=== PATIENT | female | born 1990 | race Caucasian/White ===

== ENCOUNTER 2017-03-12 17:51 | Emergency (ER) | payer OTHER ==
--- OUTSIDE RECORDS SUMMARY | 2017-03-12 18:33 | XMS REPORT | Continuity of Care Document ---
:1990 Author Organization [place] [place] [address] Care Team Providers Name Role Phone Curtis Lackey A Primary Care Provider [phone] Source Comments This disclosure is being made pursuant to the [employer] program and maynot contain all information available regarding this patient.[facility] Active Allergies and Adverse Reactions Allergen Noted Date Severity Reactions Comments Tape 01/30/2016 Low Rash Current Medications Be aware that medications may not be up to date as of this document. Alwaysverify current medications with the patient. Prescription Sig. Disp. Refills Start Date End Date Status ondansetron (ZOFRAN) 4 Take 1 tablet by 9 tablet 0 01/30/2016 Active MG tablet mouth every 8 (eight) hours as needed for Nausea. acetaminophen (TYLENOL Take 1 tablet by 12 tablet 0 05/01/2016 Active ARTHRITIS) 650 MG CR mouth every 8 tablet (eight) hours as needed for Pain. Active Problems Currently Estimated Date of Delivery Comments Yes No known active problems Social History Tobacco Use Types Packs/Day Years Used Date Current Every Day Smoker Cigarettes 0.5 8 Alcohol Use Drinks/Week oz/Week Comments No Last Filed Vital Signs Vital Sign Reading Time Taken Blood Pressure 113/66 05/01/2016 5:23 PM CDT Pulse 95 05/01/2016 5:23 PM CDT Temperature 37 C (98.6 F) 05/01/2016 5:23 PM CDT Respiratory Rate 18 05/01/2016 5:23 PM CDT Height 1.575 m (5' 2.01") 05/01/2016 5:23 PM CDT Weight 68.04 kg (150 lb) 05/01/2016 5:23 PM CDT Body Mass Index 27.43 05/01/2016 5:23 PM CDT Oxygen Saturation 99% 05/01/2016 5:23 PM CDT Plan of Care Health Maintenance Due Date Last Done Comments HPV Vaccine (9-26YO) (1 of 3 - Female 3 2003 Dose Series) Pneumococcal Medium Risk 19-64 yo (1 of 1 2011 - PPSV23) Tetanus/Pertussis (1 - Tdap) 2011 Pap Smear 2013 Influenza Immunization (#1) 2016 Chlamydia Screening 05/01/2017 05/01/2016, 01/30/2016 Results from Last 3 Months Not on file
--- OUTSIDE RECORDS SUMMARY | 2017-03-12 18:34 | XMS REPORT | Summary of Care ---
:[address] [facility] Address [address] [place] [address] Care Team Providers Name Role Phone Jeni Reveles Primary Care Physician Encounter Date(s): 10/20/16 - 10/20/16 [facility], [address] [place] [id number] [place] Discharge Disposition: 01 Discharged to Home or Self Care Attending Physician: Jeni Reveles MD Vital Signs No data available for this section Problem List Condition Effective Dates Status Health Status Informant Adolescent (Confirmed) Active Anxiety(Confirmed) Active Depression(Confirmed) Active Maternal tobacco use(Confirmed) Active (Confirmed) 01/20/16 Active (Confirmed) 01/13/12 - 10/19/12 Resolved Allergies, Adverse Reactions, Alerts Substance Reaction Severity Status Adhesive Bandage SWELLING Active Medications ALPRAZolam 0.5 mg oral tablet 1 tab(s), Oral, TID, PRN for anxiety, 0 Refill(s), Start Date: 01/05/16 12:47: 00 CDT Start Date: 01/05/16 Stop Date: 03/22/16 Status: DiscontinuedAzithromycin 5 Day Dose Pack 250 mg oral tablet 1 packet(s), Oral, Per Package Label, as directed on package labeling, # 6 tab(s ), 0 Refill(s), Start Date: 08/27/16 15:10:00 TAX ACCOUNTANT, Pharmacy: [facility] [id number] Start Date: 08/27/16 Stop Date: 09/03/16 Status: CompletedbusPIRone 10 mg oral tablet 1 tab(s), Oral, BID, # 60 tab(s), 3 Refill(s), Start Date: 08/03/16 15:22:00 CDT , Pharmacy: [facility] [id number] Start Date: 08/03/16 Status: Orderedcefdinir 300 mg oral capsule 0 Refill(s), Start Date: 08/17/16 15:06:00 TAX ACCOUNTANT Start Date: 08/17/16 Stop Date: 08/27/16 Status: CompletedclonazePAM Oral, TID, 0 Refill(s), Start Date: 05/01/15 14:53:00 CDT Start Date: 05/01/15 Stop Date: 02/10/16 Status: DiscontinuedDiclegis 2 tab(s), Oral, HS, exp 2017-08-02, 0 Refill(s), Start Date: 03/24/16 8:33:00 CDT, Samples: 2, 1397 Start Date: 03/24/16 Stop Date: 06/14/16 Status: Discontinueddocusate sodium 100 mg oral capsule 1 cap(s), Oral, BIDMEALS, # 60 cap(s), 0 Refill(s), Start Date: 10/15/16 8:23: 00 TAX ACCOUNTANT, Pharmacy: [facility] [id number] Start Date: 10/15/16 Status: OrderedFlexeril 10 mg oral tablet 1 tab(s), Oral, TID, # 30 tab(s), 0 Refill(s), Start Date: 08/11/16 14:58:00 TAX ACCOUNTANT , Pharmacy: [facility] [id number] Start Date: 08/11/16 Status: OrderedHYDROcodone-acetaminophen 5 mg-325 mg oral tablet 1 tab(s), Oral, q6hr interval, # 4 tab(s), 0 Refill(s), Start Date: 04/01/16 21: 33:00 CDT Start Date: 04/01/16 Stop Date: 04/02/16 Status: Completedhydrocodone-acetaminophen 5mg-325mg oral tablet 1 tab(s), Oral, q6hr interval, PRN pain moderate 4-7, X 5 days, # 20 tab(s), 0 Refill(s), Start Date: 10/15/16 8:23:00 TAX ACCOUNTANT, Pharmacy: [facility] [id number] Start Date: 10/15/16 Stop Date: 10/20/16 Status: Completedibuprofen 800 mg oral tablet 1 tab(s), Oral, TID, PRN cramps, # 40 tab(s), 0 Refill(s), Start Date: 10/15/16 8:23:00 TAX ACCOUNTANT, Pharmacy: [facility] [id number] Start Date: 10/15/16 Status: OrderedNifedical XL 30 mg oral tablet, extended release 1 tab(s), Oral, Daily, # 15 tab(s), 0 Refill(s), Start Date: 08/31/16 17:21:00 TAX ACCOUNTANT, Pharmacy: [id number] Start Date: 08/31/16 Stop Date: 09/21/16 Status: DiscontinuedNuvaRing 0.120 mg-0.015 mg vaginal ring EA, Vaginal, q4wk, 2 SAMPLES GIVEN PER LISSETH MANNING, 0 Refill(s), Start Date: 05/01/15 15:16:00 CDT, [id number], 07/03/16 Start Date: 05/01/15 Stop Date: 06/02/15 Status: Discontinuedpenicillin V potassium 500 mg oral tablet 1 tab(s), Oral, BID, # 20 tab(s), 0 Refill(s), Start Date: 12/18/15 13:51:00 CDT , Pharmacy: [facility] [id number] Start Date: 12/18/15 Stop Date: 02/05/16 Status: CompletedPrenatal Multivitamins 1 tablet, Oral, Daily, 0 Refill(s), Start Date: 03/22/16 13:13:00 CDT Start Date: 03/22/16 Status: OrderedProventil HFA 90 mcg/inh inhalation aerosol 1 puff(s), Inhale, QID, PRN for wheezing, # 1 boxes, 0 Refill(s), Start Date: 15:10:00 TAX ACCOUNTANT, Pharmacy: [facility] [id number] Start Date: 08/27/16 Status: Orderedtriamcinolone 0.1% topical cream 1 clary, Topical, TID, PRN soreness, 0 Refill(s), Start Date: 10/15/16 8:23:00 TAX ACCOUNTANT Start Date: 10/15/16 Status: OrderedTylenol 325 mg oral capsule 650 mg, Oral, q4hr, PRN pain mild 1-3, 0 Refill(s), Start Date: 10/15/16 8:23: 00 TAX ACCOUNTANT Start Date: 10/15/16 Status: OrderedVitamin D with Minerals oral tablet tab(s), Oral, Daily, 0 Refill(s), Start Date: 06/02/15 15:02:00 CDT Start Date: 06/02/15 Stop Date: 02/10/16 Status: CompletedWellbutrin XL 300 mg/24 hours oral tablet, extended release tab(s), Oral, q24hr interval, 0 Refill(s), Start Date: 05/01/15 14:52:00 CDT Start Date: 05/01/15 Stop Date: 02/10/16 Status: Discontinued Results No data available for this section Immunizations Given and Recorded Vaccine Date Status Refusal Reason tetanus/diphth/pertuss (Tdap) adult/adol 08/03/16 Given influenza virus vaccine, inactivated 08/03/16 Given Procedures Procedure Date Related Diagnosis Body Site Cholecystectomy 2013 Removal - procedure1 2011 Extraction of wisdom tooth 2010 Cystectomy2 2009 1STONE TAKEN OUT OF SALIVA [id number] Social History No data available for this section Assessment and Plan No data available for this section
--- OUTSIDE RECORDS SUMMARY | 2017-03-12 18:34 | XMS REPORT | Summary of Care ---
:1990 Author Organization [facility] Address [address] [place] [address] Care Team Providers Name Role Phone Jeni Reveles Primary Care Physician Encounter Date(s): 11/25/16 - 11/25/16 [facility], [address] [place] [address]- [facility] Discharge Diagnosis: Sore throat Discharge Diagnosis: Encounter for insertion of intrauterine contraceptive device Discharge Diagnosis: Encounter for routine follow-up Discharge Disposition: Discharged to Home or Self Care Attending Physician: Jeni Reveles MD Referring Physician: Jeni Reveles MD Vital Signs Most recent to oldest [Reference Range]: 1 Peripheral Pulse Rate [60-100 bpm] 70 bpm (11/25/16 10:58 AM) Blood Pressure [90-130/60-90 mmHg] 109/63mmHg (11/25/16 10:58 AM) Mean Arterial Pressure, Cuff 78 mmHg (11/25/16 10:58 AM) Most recent to oldest [Reference Range]: 1 Weight Dosing 70.90 kg1 (11/25/16 11:01 AM) Weight Measured 70.9 kg (11/25/16 10:58 AM) 1Result Comment: This result was because the dosing weight was either not entered or it is>30 days old. This result is based off: Weight Measured November 25, 2016 10:58:00 MACHINE MARKER by Andra Cerna CMA Problem List Condition Effective Dates Status Health Status Informant Adolescent (Confirmed) Active Anxiety(Confirmed) Active Depression(Confirmed) Active Maternal tobacco use(Confirmed) Active (Confirmed) 01/20/16 - 10/13/16 Resolved (Confirmed) 01/13/12 - 10/19/12 Resolved Allergies, Adverse [...] ), 0 Refill(s), Start Date: 08/27/16 15:10:00 MACHINE MARKER, Pharmacy: [facility] Special Instructions: as directed on package labeling Start Date: 08/27/16 Stop Date: 09/03/16 Status: CompletedbusPIRone 10 mg oral tablet 1 tab(s), Oral, BID, # 60 tab(s), 3 Refill(s), Start Date: 08/03/16 15:22:00 CDT , Pharmacy: [facility] [id number] Start Date: 08/03/16 Status: Orderedcefdinir 300 mg oral capsule 0 Refill(s), Start Date: 08/17/16 15:06:00 MACHINE MARKER Start Date: 08/17/16 Stop Date: 08/27/16 Status: CompletedclonazePAM Oral, TID, 0 Refill(s), Start Date: 05/01/15 14:53:00 CDT Special Instructions: PT is not taking Start Date: 05/01/15 Stop Date: 02/10/16 Status: DiscontinuedDiclegis 2 tab(s), Oral, HS, exp 2017-08-02, 0 Refill(s), Start Date: 03/24/16 8:33:00 CDT, Samples: 2, 1397 Special Instructions: exp 2017-08-02 Start Date: 03/24/16 Stop Date: 06/14/16 Status: Discontinueddocusate sodium 100 mg oral capsule 1 cap(s), Oral, BIDMEALS, # 60 cap(s), 0 Refill(s), Start Date: 10/15/16 8:23: 00 MACHINE MARKER, Pharmacy: [facility] [id number] Start Date: 10/15/16 Stop Date: 11/25/16 Status: DiscontinuedFenugreek Fenugreek, 0 Refill(s), Supply Start Date: 11/25/16 Status: OrderedFlexeril 10 mg oral tablet 1 tab(s), Oral, TID, # 30 tab(s), 0 Refill(s), Start Date: 08/11/16 14:58:00 MACHINE MARKER , Pharmacy: [facility] [id number] Start Date: 08/11/16 Stop Date: 11/25/16 Status: DiscontinuedHYDROcodone-acetaminophen 5 mg-325 mg oral tablet 1 tab(s), Oral, q6hr interval, # 4 tab(s), 0 Refill(s), Start Date: 04/01/16 21: 33:00 CDT Start Date: 04/01/16 Stop Date: 04/02/16 Status: Completedhydrocodone-acetaminophen 5mg-325mg oral tablet 1 tab(s), Oral, q6hr interval, PRN pain moderate 4-7, X 5 days, # 20 tab(s), 0 Refill(s), Start Date: 10/15/16 8:23:00 MACHINE MARKER, Pharmacy: [facility] [id number] Start Date: 10/15/16 Stop Date: 10/20/16 Status: Completedibuprofen 800 mg oral tablet 1 tab(s), Oral, TID, PRN cramps, # 40 tab(s), 0 Refill(s), Start Date: 10/15/16 8:23:00 MACHINE MARKER, Pharmacy: [facility] [id number] Start Date: 10/15/16 Stop Date: 11/25/16 Status: Discontinuedlevonorgestrel (Mirena) intrauteral device (office) 52 mg, Intrauteral, ONETIME, First Dose: 11/25/16 12:00:00 MACHINE MARKER, Stop Date: 11/25 12:00:00 MACHINE MARKER, Diagnosis: Encounter for insertion of intrauterine contraceptive device Start Date: 11/25/16 Stop Date: 11/25/16 Status: CompletedMirena 52 mg intrauterine device 1 EA, Intrauteral, ONETIME, # 1 EA, 0 Refill(s), Start Date: 11/25/16 11:50:00 MACHINE MARKER, [id number], 07/02/19 Start Date: 11/25/16 Stop Date: 11/25/21 Status: OrderedNifedical XL 30 mg oral tablet, extended release 1 tab(s), Oral, Daily, # 15 tab(s), 0 Refill(s), Start Date: 08/31/16 17:21:00 MACHINE MARKER, Pharmacy: [id number] Start Date: 08/31/16 Stop Date: 09/21/16 Status: DiscontinuedNuvaRing 0.120 mg-0.015 mg vaginal ring EA, Vaginal, q4wk, 2 SAMPLES GIVEN PER LISSETH MANNING, 0 Refill(s), Start Date: 05/01/15 15:16:00 CDT, [id number], 07/03/16 Special Instructions: 2 SAMPLES GIVEN PER LISSETH MANNING Start Date: 05/01/15 Stop Date: 06/02/15 Status: Discontinuedpenicillin V potassium 500 mg oral tablet 1 tab(s), Oral, BID, # 20 tab(s), 0 Refill(s), Start Date: 12/18/15 13:51:00 CDT , Pharmacy: [facility] [id number] Start Date: 12/18/15 Stop Date: 02/05/16 Status: CompletedPrenatal Multivitamins 1 tablet, Oral, Daily, 0 Refill(s), Start Date: 03/22/16 13:13:00 CDT Start Date: 03/22/16 Status: OrderedProventil HFA 90 mcg/inh inhalation aerosol 1 puff(s), Inhale, QID, PRN for wheezing, # 1 boxes, 0 Refill(s), Start Date: 15:10:00 MACHINE MARKER, Pharmacy: [facility] [id number] Start Date: 08/27/16 Status: Orderedtriamcinolone 0.1% topical cream 1 clary, Topical, TID, PRN soreness, 0 Refill(s), Start Date: 10/15/16 8:23:00 MACHINE MARKER Start Date: 10/15/16 Stop Date: 11/25/16 Status: DiscontinuedTylenol 325 mg oral capsule 650 mg, Oral, q4hr, PRN pain mild 1-3, 0 Refill(s), Start Date: 10/15/16 8:23: 00 MACHINE MARKER Start Date: 10/15/16 Stop Date: 11/25/16 Status: DiscontinuedVitamin D with Minerals oral tablet tab(s), Oral, Daily, 0 Refill(s), Start Date: 06/02/15 15:02:00 CDT Start Date: 06/02/15 Stop Date: 02/10/16 Status: CompletedWellbutrin XL 300 mg/24 hours oral tablet, extended release tab(s), Oral, q24hr interval, 0 Refill(s), Start Date: 05/01/15 14:52:00 CDT Special Instructions: PT not taking Start Date: 05/01/15 Stop Date: 02/10/16 Status: Discontinued Results No data available for this section Immunizations Vaccine Date Refusal Reason tetanus/diphth/pertuss (Tdap) adult/adol 08/03/16 influenza virus vaccine, inactivated 08/03/16 Procedures Procedure Date Related Diagnosis Body Site Cholecystectomy 2013 Removal - procedure1 2011 Extraction of wisdom tooth 2010 Cystectomy2 2009 1STONE TAKEN OUT OF SALIVA [id number] Social History No data available for this section Assessment and Plan No data available for this section
--- OUTSIDE RECORDS SUMMARY | 2017-03-12 18:34 | XMS REPORT | Summary of Care ---
:1990 Author Organization [facility] Address [address] [place] [id number]- Care Team Providers Name Role Phone Jeni Reveles Primary Care Physician Encounter Date(s): 10/13/16 - 10/15/[address] [address]- [facility] Discharge Diagnosis: Encounter for full-term uncomplicated delivery Discharge Disposition: 01 Discharged to Home or Self Care Attending Physician: Jeni Reveles MD Admitting Physician: Morelia Patel MD Vital Signs Most recent to oldest 1 2 3 [Reference Range]: Temperature Temporal Artery 36.9 DegC 36.6 DegC 36.3 DegC [36-38 DegC] (10/15/16 8:00 AM) (10/15/16 12:30 AM) (10/14/16 9:15 PM) Apical Heart Rate [60-100 99 bpm bpm] (10/14/16 12:00 PM) Peripheral Pulse Rate [60-100 112 bpm 107 bpm bpm] *HI* *HI* (10/14/16 8:00 AM) (10/13/16 8:30 PM) Heart Rate Monitored [60-100 85 bpm 68 bpm 90 bpm bpm] (10/15/16 8:00 AM) (10/15/16 12:30 AM) (10/14/16 9:15 PM) Respiratory Rate [12-20 16 br/min 16 br/min 16 br/min br/min] (10/15/16 8:00 AM) (10/15/16 12:30 AM) (10/14/16 9:15 PM) SpO2 98 % 98 % 100 % (10/15/16 12:30 AM) (10/14/16 9:15 PM) (10/14/16 8:00 AM) SpO2 Location Left hand (10/14/16 8:00 AM) Blood Pressure [90-130/60-90 121/72mmHg 98/54mmHg 116/69mmHg mmHg] (10/15/16 8:00 AM) (10/15/16 12:30 AM) (10/14/16 9:15 PM) Mean Arterial Pressure, Cuff 88 mmHg 69 mmHg 85 mmHg (10/15/16 8:00 AM) (10/15/16 12:30 AM) (10/14/16 9:15 PM) Blood Pressure Location Left arm (10/14/16 8:00 AM) Height/Length Measured 158 cm (10/13/16 8:30 PM) Weight Dosing 77.6 kg (10/13/16 8:30 PM) Weight Measured 77.6 kg (10/13/16 8:30 PM) Body Mass Index Measured 31.08 kg/m2 (10/13/16 8:30 PM) Problem List Condition Effective Dates Status Health [...] ), 0 Refill(s), Start Date: 08/27/16 15:10:00 TITLE EXAMINER, Pharmacy: [facility] [id number] Start Date: 08/27/16 Stop Date: 09/03/16 Status: CompletedbusPIRone 10 mg oral tablet 1 tab(s), Oral, BID, # 60 tab(s), 3 Refill(s), Start Date: 08/03/16 15:22:00 CDT , Pharmacy: [facility] [id number] Start Date: 08/03/16 Status: Orderedcefdinir 300 mg oral capsule 0 Refill(s), Start Date: 08/17/16 15:06:00 TITLE EXAMINER Start Date: 08/17/16 Stop Date: 08/27/16 Status: [...] 0 Refill(s), Start Date: 10/15/16 8:23: 00 TITLE EXAMINER, Pharmacy: [facility] [id number] Start Date: 10/15/16 Status: OrderedFlexeril 10 mg oral tablet 1 tab(s), Oral, TID, # 30 tab(s), 0 Refill(s), Start Date: 08/11/16 14:58:00 TITLE EXAMINER , Pharmacy: [facility] [id number] Start Date: 08/11/16 Status: OrderedHYDROcodone-acetaminophen 5 mg-325 mg oral tablet 1 tab(s), Oral, q6hr interval, # 4 tab(s), 0 Refill(s), Start Date: 04/01/16 21: 33:00 CDT Start Date: 04/01/16 Stop Date: 04/02/16 Status: Completedhydrocodone-acetaminophen 5mg-325mg oral tablet 1 tab(s), Oral, q6hr interval, PRN pain moderate 4-7, X 5 days, # 20 tab(s), 0 Refill(s), Start Date: 10/15/16 8:23:00 TITLE EXAMINER, Pharmacy: [facility] [id number] Start Date: 10/15/16 Stop Date: 10/20/16 Status: Orderedibuprofen 800 mg oral tablet 1 tab(s), Oral, TID, PRN cramps, # 40 tab(s), 0 Refill(s), Start Date: 10/15/16 8:23:00 TITLE EXAMINER, Pharmacy: [facility] [id number] Start Date: 10/15/16 Status: OrderedNifedical XL 30 mg oral tablet, extended release 1 tab(s), Oral, Daily, # 15 tab(s), 0 Refill(s), Start Date: 08/31/16 17:21:00 TITLE EXAMINER, Pharmacy: [facility] Start Date: 08/31/16 Stop Date: 09/21/16 Status: DiscontinuedNuvaRing 0.120 mg-0.015 mg vaginal ring EA, Vaginal, q4wk, 2 SAMPLES GIVEN PER LISSETH MANNING, 0 Refill(s), Start Date: 05/01/15 15:16:00 CDT, [id number], 07/03/16 Start Date: 05/01/15 Stop Date: 06/02/15 Status: Discontinuedpenicillin V potassium 500 mg oral tablet 1 tab(s), Oral, BID, # 20 tab(s), 0 Refill(s), Start Date: 12/18/15 13:51:00 CDT , Pharmacy: [facility] [id number] Start Date: 12/18/15 Stop Date: 02/05/16 Status: CompletedPrenatal Multivitamins 1 tablet, Oral, Daily, 0 Refill(s), Start Date: 03/22/16 13:13:00 CDT Start Date: 03/22/16 Status: OrderedProventil HFA 90 mcg/inh inhalation aerosol 1 puff(s), Inhale, QID, PRN for wheezing, # 1 boxes, 0 Refill(s), Start Date: 15:10:00 TITLE EXAMINER, Pharmacy: [facility] [id number] Start Date: 08/27/16 Status: Orderedtriamcinolone 0.1% topical cream 1 clary, Topical, TID, PRN soreness, 0 Refill(s), Start Date: 10/15/16 8:23:00 TITLE EXAMINER Start Date: 10/15/16 Status: OrderedTylenol 325 mg oral capsule 650 mg, Oral, q4hr, PRN pain mild 1-3, 0 Refill(s), Start Date: 10/15/16 8:23: 00 TITLE EXAMINER Start Date: 10/15/16 Status: OrderedVitamin D with Minerals oral tablet tab(s), Oral, Daily, 0 Refill(s), Start Date: 06/02/15 15:02:00 CDT Start Date: 06/02/15 Stop Date: 02/10/16 Status: CompletedWellbutrin XL 300 mg/24 hours oral tablet, extended release tab(s), Oral, q24hr interval, 0 Refill(s), Start Date: 05/01/15 14:52:00 CDT Start Date: 05/01/15 Stop Date: 02/10/16 Status: Discontinued Results Patient Viewable Results Most recent to oldest [Reference Range]: 1 WBC [4.8-10.8 thou/mm3] 18.6 thou/mm3 *HI* (10/13/16 9:30 PM) RBC [4.20-5.40 Mil/mm3] 4.11 Mil/mm3 *LOW* (10/13/16 9:30 PM) Hgb [12.0-16.0 g/dL] 12.2 g/dL (10/13/16 9:30 PM) Hct [37.0-47.0 %] 36.3 % *LOW* (10/13/16 9:30 PM) MCV [80.0-94.0 fL] 88.3 fL (10/13/16 9:30 PM) MCH [25.0-38.0 pg/cell] 29.7 pg/cell (10/13/16 9:30 PM) MCHC [31.0-37.0 g/dL] 33.6 g/dL (10/13/16 9:30 PM) RDW [1.0-48.0 fL] 41.5 fL (10/13/16 9:30 PM) Platelet [130-400 thou/mm3] 220 thou/mm3 (10/13/16 9:30 PM) Neutrophils % Auto [50.0-75.0 %] 74.5 % (10/13/16 9:30 PM) Immature Granulocyte Auto [0.1-2.0 %] 0.6 % (10/13/16 9:30 PM) Lymphocytes % Auto [15.0-41.0 %] 15.6 % (10/13/16 9:30 PM) Monocytes % Auto [2.0-10.0 %] 8.7 % (10/13/16 9:30 PM) Eosinophils % Auto [0.0-6.0 %] 0.5 % (10/13/16 9:30 PM) Basophil % Auto [0.0-1.0 %] 0.1 % (10/13/16 9:30 PM) Neutrophils Absolute [1.5-5.9 thou/mm3] 13.9 thou/mm3 *HI* (10/13/16 9:30 PM) Immature Gran Absolute [0.01-0.03 thou/mm3] 0.11 thou/mm3 *HI* (10/13/16 9:30 PM) Lymphocytes Absolute [1.5-4.0 thou/mm3] 2.9 thou/mm3 (10/13/16 9:30 PM) Monocytes Absolute [0.0-0.9 thou/mm3] 1.6 thou/mm3 *HI* (10/13/16 9:30 PM) Eosinophil Absolute [0.0-0.7 thou/mm3] 0.1 thou/mm3 (10/13/16 9:30 PM) Basophil Absolute [0.0-0.2 thou/mm3] 0.0 thou/mm3 (10/13/16 9:30 PM) Rupture of Membranes [Negative] Positive1 *ABN* (10/13/16 8:28 PM) Estimated Creatinine Clearance 191.05 mL/min (10/14/16 12:59 AM) ABO/Rh O POS *Unknown* (10/13/16 9:30 PM) Antibody Screen Negative ABSC (10/13/16 9:30 PM) 1Result Comment: Verified Results called to and read back by reanna peters at 2016 8:41:52 PM TITLE EXAMINER by kory. Immunizations Given and Recorded Vaccine Date Status Refusal Reason tetanus/diphth/pertuss (Tdap) adult/adol 08/03/16 Given influenza virus vaccine, inactivated 08/03/16 Given Procedures Procedure Date Related Diagnosis Body Site Cholecystectomy 2012 Removal - procedure1 2011 Extraction of wisdom tooth 2010 Cystectomy2 2009 1STONE TAKEN OUT OF SALIVA [id number] Social History No data available for this section Assessment and Plan No data available for this section
--- NOTE | 2017-03-12 18:41 | ERNOTE ---
Upper Extremity HPI - Narrative Date of Service: 03/12/17 - General Extremities Pain Location: shoulder: right Time Seen by Provider: 03/12/17 18:20 Source: patient Exam Limitations: no limitations - Immun/Allergies/Home Medications Immunizations: IMMUNIZATION HX Immunizations Up to Date Yes History of Influenza Vaccine Yes Allergies/Adverse Reactions: Allergies Allergy/AdvReac Type Severity Reaction Status Date / Time adhesive tape Allergy Verified 03/12/17 18:03 Home Medications: HOME MEDICATIONS Vit#96/Ferrous Fum/FA [ S] 1 tab PO DAILY 08/30/16 [Last Taken Unknown] Cyclobenzaprine HCl [Flexeril] 10 mg PO TID PRN #15 tab 03/12/17 [Last Taken Unknown] - History of Present Illness Narrative: Patient presents to the ED for right shoulder pain. She was at work using a gait belt and the person fell forward. She had immediate pain right shoulder. Hurts to move the shoulder. Numbness around the shoulder but no distal N/T/W. Right handed. Mild low back pain with this also but no midline pain, no fall or direct blow. No CP or SOB> no fevers. Pain can be severe with movement. Most of the pain in the posterior shoulder. Occurred: other - today Location of Incident: work Severity: severe Method of Injury: Reports: twisted Loss of Consciousness: Reports: no loss of consciousness Modifying Factors - (Improves): Reports: rest Modifying Factors - (Worsens): Reports: movement Associated Symptoms: Denies: weakness, loss of power (rt arm) Prior Treament: Denies: recently seen Review of Systems - Review of Systems Constitutional: Absent: fever Respiratory: Absent: shortness of breath Cardiology: Absent: chest pain Gastrointestinal/Abdominal: Absent: abdominal pain Musculoskeletal: Present: See HPI Skin: Present: other - no laceration Neurological: Present: See HPI - Patient's Past Medical History Patient History - Medical: No pertinent hx, Depression Patient History - Cardiac/Respiratory: No pertinent hx Patient History - Cancer: No Hx of Cancer Patient History - Surgical Procedures: Cholecystectomy Patient History - Other: None LMP (Calendar): 01/20/16 - Social History Living Situations: home Psych History: Hx of Anxiety, Hx of Depression Smoking Status: Current every day smoker Patient requests Smoking Cessation Consult: No Initiate information on Smoking Cessation: No Alcohol Use: none Drug Use: none - Immunizations Immunizations Up to Date: Yes History of Influenza Vaccine: Yes Physical Exam - Physical Exam General Appearance: Present: alert, no apparent distress Eye Exam: Normal inspection: bilateral Neck: Present: other - no vertebral tenderness Respiratory: Present: no respiratory distress Cardiovascular/Chest: Present: regular rate, rhythm, normal peripheral pulses Back Exam: Present: other - Mild muscular tendenress right and left low back. No vertebral tendenress. No suggestion of need for x-rays.. Absent: vertebral tenderness Extremity Exam: Present: normal inspection, other - Tenderness right scapula and deltoid. Full ROM. No clinical dislocation. Strong radial pulse. No swelling Neurological Exam: Present: other - Sensation to LT intact. Full hnd strength. No motor deficits although pain does limit exam somewhat. No clear acute focla motor or sensory deficits. Skin Exam: Absent: skin rash ED Progress - Vital Signs Patient's Vital Signs:: I have reviewed the patient's vital signs. Vital Signs: Vital Signs 03/12/17 17:58 Temperature 36.8 C Pulse Rate 88 Respiratory 18 Rate Blood Pressure 129/78 O2 Sat by Pulse 97 Oximetry - X-Ray X-Ray #1 X-Ray: shoulder Interpretation: Interp. by me X-ray Comments: No real-time x-ray reads available as is weekend. No fracture or acute process by my interpretation. - Progress/Reassessment Chief Complaint: Shoulder Injury/Pain Progress Note-Subjective: 03/12/17 18:37 No suggestion of septic arthritis, vascular or neuro deficit. Cannot r/o internal derangement. Conservative management with close f/u. I discussed warning signs and reasons to return as well as the need for close f/u. 03/12/17 18:40 No compartment syndrome. Departure Clinical Impression: Musculoskeletal pain of right upper extremity - Departure Disposition: Home self-care Condition: Stable Instructions: Shoulder Pain, [id number] Additional Instructions: Rest. Ice. Medications as directed, no driving while taking. No work until re -checked. Follow-up with your doctor 3 days for a re-check. Return for increased pain, numbness, tingling, weakness or if your condition worsens or changes in any way. SLing as needed for no longer than 3 days. No with muscle relaxants. Ibuprofen. Referrals: Curtis Lackey DO [Primary Care Provider] - Prescriptions: Cyclobenzaprine HCl [Flexeril] 10 mg PO TID PRN #15 tab PRN Reason: MUSCLE SPASMS
[2017-03-12 19:27] VITALS: BP 108/71
== END 2017-03-12 19:05 | disposition home or self-care (01) ==
LOC: ER 17:51
DX: M79.621 Pain in right upper arm (principal); X58.XXXA Exposure to other specified factors, initial encounter; Y93.89 Activity, other specified; Y92.9 Unspecified place or not applicable; Y99.0 Civilian activity done for income or pay

== ENCOUNTER 2017-06-07 20:47 | Emergency (ER) | payer SELFPAY ==
[2017-06-07 21:10] LABS: Hematocrit 42.3 % (37.0-47.0); Mean Cell Volume 88.1 fl (78-100); Mean Corpuscular Hemoglobin 29.2 pg (27-31); Mean Corpuscular Hgb Conc 33.1 g/dl (32-36); Mean Platelet Volume 11.7 fl (6.0-9.5); Neutrophil # 5.3 K/mm3 (1.3-6.0); Neutrophil % 51.6 % (42-75.0); Platelet Count 270 K/mm3 (150-450); Red Cell Distribution Width 12.3 % (11.5-14.0); White Blood Count 10.3 K/mm3 (4.0-10.5)
[2017-06-07 21:11] LABS: Urine Bilirubin Negative (NEGATIVE); Urine Blood Negative /ul (NEGATIVE); Urine Ketone Negative (NEGATIVE); Urine Nitrite Negative (NEGATIVE); Urine Protein Negative (NEGATIVE); Urine Urobilinogen Normal (NORMAL); Urine pH 6.5 pH (5.0-7.0)
[2017-06-07] MEDS ORDERED: NORMAL SALINE 1,000 ML IV ONE (21:19)
[2017-06-07 21:21] LABS: Urine Appearance Cloudy; Urine Bacteria 1+; Urine Color Yellow; Urine RBC None Seen /hpf (0-5); Urine WBC 0-5 /hpf (0-5)
[2017-06-07] MEDS ORDERED: ONDANSETRON HCL/PF 2 MG/ML VIAL IV ONE (21:22)
--- NOTE | 2017-06-07 21:23 | ERNOTE ---
Abdominal HPI - General Chief Complaint: Abdominal Pain Time Seen by Provider: 06/07/17 21:11 Source: patient Exam Limitations: no limitations - Immun/Allergies/Home Medications Immunizatons: IMMUNIZATION HX Immunizations Up to Date Yes History of Influenza Vaccine Yes Allergies/Adverse Reactions: Allergies adhesive tape Allergy (Verified 06/07/17 20:57) Home Medications: HOME MEDICATIONS NK [No Home Medication] 06/07/17 [Last Taken Unknown] - History of Present Illness Narrative: Onset of central abdominal pain yesterday with "shooting pain" intermittently down toward the RLQ. Now stabbing from her back and shooting to the RLQ. Timing: getting worse Quality: moderate, severe Activities at Onset: none Associated Symptoms: Present: nausea, loss of appetite Prior Abdominal Problems: Present: none Review of Systems - Review of Systems Constitutional: Present: chills, diaphoresis, fatigue EYE: Present: no symptoms reported ENT: Present: no symptoms reported Respiratory: Present: no symptoms reported Cardiology: Present: no symptoms reported Gastrointestinal/Abdominal: Present: See HPI, diarrhea - yesterday once, normal BM today. Absent: vomiting Genitourinary: Present: frequency. Absent: dysuria Musculoskeletal: Present: back pain Skin: Present: no symptoms reported Neurological: Present: no symptoms reported Endocrine: Present: no symptoms reported Hematologic/Lymphatic: Present: no symptoms reported - Patient's Past Medical History Patient History - Medical: Anxiety, Depression Patient History - Cardiac/Respiratory: No pertinent hx Patient History - Cancer: No Hx of Cancer Patient History - Surgical Procedures: Cholecystectomy, Other Patient History - Other: None LMP (females 10-50): 1 month LMP (Calendar): 01/20/16 - Social History Living Situations: spouse Abuse History: No History of abuse Psych History: Hx of Anxiety, Hx of Depression Smoking Status: Current every day smoker Have you smoked in the past 12 months: Yes Do you dip or chew tobacco: No Patient requests Smoking Cessation Consult: No Initiate information on Smoking Cessation: No Alcohol Use: rarely Drug Use: none - Immunizations Immunizations Up to Date: Yes History of Influenza Vaccine: Yes Physical Exam - Physical Exam General Appearance: Present: wd/wn, alert, mild distress Head Exam: Present: normal inspection, no evidence of injury Eye Exam: Normal inspection: bilateral Neck: Present: normal inspection, nontender Respiratory: Present: no respiratory distress, normal breath sounds Cardiovascular/Chest: Present: regular rate, rhythm, no murmur Gastrointestinal/Abdominal: Present: tenderness - RLQ, rebound - questionable. Absent: distended, guarding Back Exam: Present: normal inspection, normal range of motion, no CVA tenderness , no vertebral tenderness Extremity Exam: Present: normal inspection, normal range of motion, no edema Neurological Exam: Present: alert, oriented, no motor/sensory deficits Skin Exam: Present: normal color, warm/dry Lymphatic Exam: Present: no adenopathy ED Progress - Results and Orders Patient's Lab Results:: I have reviewed the patient's lab results. Results and Orders: Laboratory Tests 06/07/17 06/07/17 06/07/17 21:00 21:05 21:10 WBC 10.3 Hgb 14.0 Hct 42.3 Plt Count 270 ESR 3 Sodium Potassium Chloride BUN Creatinine Random Glucose Calcium Total Bilirubin AST ALT Alkaline Phosphatase C-Reactive Prot, Quant Total Protein Albumin Amylase Lipase Urine Color Urine Appearance Urine pH Ur Specific [place] Urine Protein Urine Glucose (UA) Urine Ketones Urine Blood Urine Nitrate Urine Bilirubin Urine Urobilinogen Ur Leukocyte Esterase Urine RBC Urine WBC Ur Epithelial Cells Urine Bacteria Urine Culture Comments Urine HCG, Qual Negative 06/07/17 06/07/17 06/07/17 21:10 21:17 21:17 WBC Hgb Hct Plt Count ESR Sodium 140 Potassium 4.1 D Chloride 104 BUN 12 D Creatinine 0.75 Random Glucose 115 H Calcium 8.3 Total Bilirubin 0.1 AST 12 ALT 16 L Alkaline Phosphatase 92 C-Reactive Prot, Quant Less than 0.2 Total Protein 7.2 Albumin 4.0 Amylase 45 Lipase 132 Urine Color Yellow Urine Appearance Cloudy Urine pH 6.5 Ur Specific [place] 1.020 Urine Protein Negative Urine Glucose (UA) Negative Urine Ketones Negative Urine Blood Negative Urine Nitrate Negative Urine Bilirubin Negative Urine Urobilinogen Normal Ur Leukocyte Esterase Negative Urine RBC None seen Urine WBC 0-5 Ur Epithelial Cells 10-25 H Urine Bacteria 1+ H Urine Culture Comments No culture indicated Urine HCG, Qual - Vital Signs Patient's Vital Signs:: I have reviewed the patient's vital signs. Vital Signs: Vital Signs 06/07/17 20:51 Temperature 36.5 C Pulse Rate 74 Respiratory 14 Rate Blood Pressure 119/76 O2 Sat by Pulse 99 Oximetry - X-Ray X-Ray #1 X-Ray: abdomen Interpretation: Interp. by me X-ray Comments: moderate to severe stool retention especially ascending colon. No a/f levels or other evidence for obstruction. - Progress/Reassessment Chief Complaint: Abdominal Pain Progress:: Improved Progress Note-Subjective: 06/07/17 23:30 pt feeling somewhat better. Discussed normal lab values and x-ray that shows constipation in the area of concern. Discussed using MOM tonight and tomorrow if necessary. Pt expressed understanding Departure - Departure Clinical Impression: Constipation Qualifiers: Constipation type: slow transit constipation Qualified Code(s): K59.01 - Slow transit constipation Disposition: Home self-care Condition: Good Instructions: Constipation, Adult, [id number] Additional Instructions: Take entire dose of milk of magnesia upon arriving home with a large glass of water. You may repeat that tomorrow if you have no results by mid-day. follow up with your regular doctor if not improving Referrals: Curtis Lackey, [Primary Care Provider] -
[2017-06-07 21:24] LABS: Anion Gap 16.7 mmol/L (6.8-13.8); Bilirubin, Total 0.1 mg/dL (0.0-1.1); Calcium * 8.3 mg/dL (7.9-10.9); Carbon Dioxide 23.4 mmol/L (24-32.6); Potassium 4.1 mmol/L (3.4-4.6); Total Protein 7.2 gm/dL (6.2-8.2)
[2017-06-07] MEDS ORDERED: ONDANSETRON HCL/PF 2 MG/ML VIAL ONE (21:48)
[2017-06-07 23:34] VITALS: BP 108/64
[2017-06-07] MEDS ORDERED: MAGNESIUM HYDROXIDE 30 ML UDC PO ONE (23:40)
[2017-06-07] MEDS ORDERED: MAGNESIUM HYDROXIDE 30 ML UDC ONE (23:42)
== END 2017-06-07 23:50 | disposition home or self-care (01) ==
LOC: ER 20:47
DX: K59.01 Slow transit constipation (principal); F17.200 Nicotine dependence, unspecified, uncomplicated
CPT/HCPCS: 36415; 74020; 80053; 81001; 82150; 83690; 84703; 85025; 85652; 86140; 96374; 99284; J2405

== ENCOUNTER 2017-08-09 00:17 | Emergency (ER) | payer SELFPAY ==
--- NOTE | 2017-08-09 00:52 | ERNOTE ---
Abdominal HPI - General Chief Complaint: Genitourinary Problem Time Seen by Provider: 08/09/17 00:36 Source: patient Exam Limitations: no limitations - Immun/Allergies/Home Medications Immunizatons: IMMUNIZATION HX Immunizations Up to Date Yes History of Influenza Vaccine No Allergies/Adverse Reactions: Allergies adhesive tape Allergy (Verified 08/09/17 00:27) Home Medications: HOME MEDICATIONS NK [No Home Medication] 06/07/17 [Last Taken Unknown] - History of Present Illness Narrative: Pt began having pelvic pain and vaginal bleeding 2 days ago. It has continued to worsen and OTC analgesics have only helped somewhat. She has been soaking a pad every 2 hours. Timing: getting worse Quality: moderate, severe, dullness Modifying Factors - (Improves): Present: analgesics, rest Modifying Factors - (Worsens): Present: movement Review of Systems - Review of Systems Constitutional: Absent: recent illness, fever, chills EYE: Present: no symptoms reported ENT: Present: no symptoms reported Respiratory: Present: no symptoms reported Cardiology: Present: no symptoms reported Gastrointestinal/Abdominal: Present: eating less Genitourinary: Present: See HPI, frequency, dysuria Musculoskeletal: Present: no symptoms reported Skin: Present: no symptoms reported Neurological: Present: no symptoms reported Endocrine: Present: no symptoms reported Hematologic/Lymphatic: Present: no symptoms reported Psych: Present: no symptoms reported - Patient's Past Medical History Patient History - Medical: Anxiety, Depression Patient History - Cardiac/Respiratory: No pertinent hx Patient History - Cancer: No Hx of Cancer Patient History - Surgical Procedures: Cholecystectomy, Other Patient History - Other: None LMP (females 10-50): last week - Social History Living Situations: home Abuse History: No History of abuse Psych History: Hx of Anxiety, Hx of Depression Smoking Status: Current every day smoker Alcohol Use: rarely Drug Use: none - Immunizations Immunizations Up to Date: Yes History of Influenza Vaccine: No Physical Exam - Physical Exam General Appearance: Present: wd/wn, alert, mild distress Head Exam: Present: normal inspection, no evidence of injury Neck: Present: normal inspection, nontender Respiratory: Present: no respiratory distress, no accessory muscle use Gastrointestinal/Abdominal: Present: nondistended, soft Pelvic Exam: Present: active bleeding, cervical motion tendernes, tender adnexa - right Back Exam: Present: no CVA tenderness, no vertebral tenderness Extremity Exam: Present: normal inspection, non-tender, normal range of motion Neurological Exam: Present: alert, oriented, no motor/sensory deficits Skin Exam: Present: normal color, warm/dry Lymphatic Exam: Present: no adenopathy ED Progress - Results and Orders Patient's Lab Results:: I have reviewed the patient's lab results. Results and Orders: Laboratory Tests 08/09/17 08/09/17 08/09/17 00:55 00:55 01:05 WBC 12.2 H Hgb 12.7 Hct 38.2 Plt Count 260 Serum HCG, Qual Positive H Urine Color Yellow Urine Appearance Slightly cloudy Urine pH 6.0 Ur Specific [place] 1.025 Urine Protein Negative Urine Glucose (UA) Negative Urine Ketones Negative Urine Blood 250 H Urine Nitrate Negative Urine Bilirubin Negative Urine Urobilinogen Normal Ur Leukocyte Esterase Negative Urine RBC 5-10 H Urine WBC 0-5 Ur Epithelial Cells 5-10 H Urine Bacteria None seen Urine Culture Comments No culture indicated Laboratory Tests 08/09/17 04:07 Maternal Serum HCG 387 H - Vital Signs Patient's Vital Signs:: I have reviewed the patient's vital signs. Vital Signs: Vital Signs 08/09/17 00:22 Temperature 36.5 C Pulse Rate 81 Respiratory 18 Rate Blood Pressure 109/67 O2 Sat by Pulse 100 Oximetry - CT/Ultrasound CT/Ultrasound Narrative: 1st TM OB US, transabd and transvag. IMPRESSION: 1. NO EVIDENCE FOR A NORMAL IUP IS IDENTIFIED. NO GESTATIONAL SAC, YOLK SAC OR POLE. 2. COMPLEX FLUID IN THE ENDOMETRIAL CANAL. GIVEN THE POSITIVE TEST, THIS REPRESENTS RETAINED PRODUCTS OF CONCEPTION. CERVIX IS CLOSED. 3. OTHERWISE NORMAL OVARIES, UTERUS AND ENDOMETRIUM. Electronically signed by Pablo Herrmann D.O.. - Progress/Reassessment Chief Complaint: Genitourinary Problem Progress:: Improved Progress Note-Subjective: 08/09/17 01:38 Discussed lab results with the patient including elevated WBC, and pos. HCG. Discussed U/S and quantitative HCG. Pt expressed understanding 08/09/17 04:52 discussed low positive HCG and no pole seen on US. discussed use of repeat labs to predict viability of the and need for her to follow up with her OB and get repeat laboratory work. Pt. expressed understanding Departure Clinical Impression: Threatened in early - Departure Disposition: Home Follow Up Needed Condition: Fair Instructions: Vaginal Bleeding During , First Trimester, Threatened Miscarriage, [id number] Additional Instructions: Contact your OB about running a quantitative HCG in 36 to 48 hours (sometime after 1 pm on the 8th.). Return to the ER or see your OB if your bleeding increases or you begin to run a fever.
[2017-08-09 01:00] LABS: Hematocrit 38.2 % (37.0-47.0); Hemoglobin 12.7 gm/dL (12.5-16.0); Mean Cell Volume 89.3 fl (78-100); Mean Corpuscular Hemoglobin 29.7 pg (27-31); Mean Corpuscular Hgb Conc 33.2 g/dl (32-36); Mean Platelet Volume 11.2 fl (6.0-9.5); Neutrophil # 6.9 K/mm3 (1.3-6.0); Neutrophil % 56.2 % (42-75.0); Platelet Count 260 K/mm3 (150-450); Red Blood Count 4.28 M/mm3 (4.2-5.4); Red Cell Distribution Width 12.4 % (11.5-14.0); White Blood Count 12.2 K/mm3 (4.0-10.5)
[2017-08-09 01:12] LABS: Urine Bilirubin Negative (NEGATIVE); Urine Blood 250 /ul (NEGATIVE); Urine Ketone Negative (NEGATIVE); Urine Nitrite Negative (NEGATIVE); Urine Protein Negative (NEGATIVE); Urine Specific Gravity 1.025 SP.GR. (1.005-1.010); Urine Urobilinogen Normal (NORMAL)
[2017-08-09 01:20] LABS: Urine Appearance Slightly Cloudy; Urine Color Yellow
[2017-08-09 01:22] LABS: Urine Bacteria None Seen; Urine WBC 0-5 /hpf (0-5)
[2017-08-09 05:18] VITALS: BP 116/64
== END 2017-08-09 05:13 | disposition home or self-care (01) ==
LOC: ER 00:17
DX: O20.0 Threatened abortion (principal); Z3A.00 Weeks of gestation of pregnancy not specified; F17.200 Nicotine dependence, unspecified, uncomplicated